=== PATIENT | female | born 1985 | race Caucasian/White ===

== ENCOUNTER 2023-04-29 15:54 | Emergency (ER) | payer BC, SELFPAY ==
[2023-04-29 15:56] VITALS: BP 161/100
[2023-04-29 16:19] LABS: % Basophils 0.5 % (0-2); % Eosinophils 1.3 % (0-6); % Immature Granulocytes 0.3 % (0-0.5); % Lymphocytes 33.9 % (20.5-51.1); % Monocytes 6.3 % (1.7-9.3); % Neutrophils 57.7 % (42.2-75.2); Absolute Eosinophils 0.1 10^3/uL (0-0.7); Absolute Lymphocytes 2.5 10^3/uL (1.2-3.4); Absolute Monocytes 0.5 10^3/uL (0.1-0.6); Absolute Neutrophils 4.3 10^3/uL (1.4-6.5); Hematocrit 37.6 % (37.0-47.0); Hemoglobin 13.1 g/dL (12.0-16.0); Mean Corp Hgb Conc. 34.8 g/dL (33.0-37.0); Mean Corpuscular Hgb 30.5 pg (27.0-31.0); Mean Corpuscular Volume 87.4 fL (81.0-99.0); Mean Platelet Volume 9.9 fL (7.4-10.4); Nucleated Red Blood Cells % 0 %; Platelet Count 340 10^3/uL (130-400); Red Cell Dist. Width 13.2 % (11.5-14.5); White Blood Cell Count 7.4 10^3/uL (4.8-10.8)
[2023-04-29 16:38] LABS: ALT (SGPT) 27 U/L (0-35); AST (SGOT) 18 U/L (14-36); Albumin 4.7 g/dl (3.5-5.0); Alkaline Phosphatase 85 U/L (38-126); Blood Urea Nitrogen 12 mg/dl (7-17); Calcium 9.7 mg/dl (8.4-10.2); Carbon Dioxide 25 mmol/L (22-30); Chloride 101 mmol/L (98-107); Glucose 136 mg/dl (70-99); Sodium 136 mmol/L (135-145); Total Bilirubin 0.4 mg/dl (0.2-1.3); Total Protein 7.3 g/dl (6.3-8.2); eGFR > 60.00
[2023-04-29 16:48] LABS: HCG, Serum Qualitative Screen Negative
--- NOTE | 2023-04-29 17:14 | ED.GENMED ---
History of Present Illness
<Roxy Crouch PA-C - Last Filed: 04/30/23 00:12>
General
Chief Complaint: Vaginal Bleeding
Source: patient
Exam Limitations: none
Time Seen by Provider: 04/29/23 16:43
Nursing documentation reviewed up to this point in time: agreed with
Travel History
Have you had any contact with someone who has COVID-19?: No
Do you have any symptoms of coronavirus? Fever > 100 degrees, chills, cough, shortness of breath, sore throat, loss of taste or smell, muscle aches, or headache?: No
History of Present Illness
History of Present Illness:
The patient is a 37-year-old female with history hypertension presenting for evaluation of persistent vaginal bleeding. Symptoms started on April 11�which she attributed to her menstrual period that was 14 days late. Bleeding continued for a week
without any decrease in intensity. She was seen by her [facility]ER OFFBEARER on April 19�where they performed a pelvic exam without any abnormal findings. They sent her for lab work and ordered an ultrasound to be completed outpatient. She has been unable to
get an appointment for ultrasound until May. Her lab work at that point was unremarkable. Bleeding has persisted since then and last night she started passing large clots. Her PLANER OFFBEARER recommended that she be seen in the emergency department.
Patient states that she is soaking through a pad or super tampon about once every 1-2 hours. She also endorses lower back pain and associated fatigue. She denies any dysuria, headache, chest pain, shortness of breath, fever, chills. She denies
any severe lightheaded or dizzy sensations. No episodes of fainting.
Patient has had 1 vaginal or 5 years ago and 1 miscarriage approximately 2 years ago. She has not been sexually active since this bleeding episode started. She has no history of STDs or abnormal Pap smears.
Patient discontinued her oral contraceptive this past January due to hypertension. She is currently on no other for control. She did take a test at home that was negative
Past History
<Roxy Crouch PA-C - Last Filed: 04/30/23 00:12>
Past History
ED Past Medical History: HTN
ED Past Surgical History: None
Social History
Tobacco: Former smoker
Alcohol: Occasional
Personal:
Living: with family
Employment: Employed
Phy Exam
<Roxy Crouch PA-C - Last Filed: 04/30/23 00:12>
Physical Exam
Physical Exam:
General: In no apparent distress, nontoxic appearing
Vitals: Hypertensive, otherwise vital signs stable
HEENT: Atraumatic, normocephalic; pupils equal round reactive light bilaterally, protecting airway, moist mucous membranes
Neck: appears supple, no JVD
CV: Regular rate and rhythm, no evidence of cyanosis
Resp: No evidence of respiratory distress, lungs clear
Abd: Soft, mildly tender suprapubic without rebound or guarding, non-distended
Pelvic: Blood in vaginal vault without any obvious clots, bimanual exam nontender
Extremities: No deformities, no evidence of cyanosis or edema no tenderness to calf; DP pulses palpable and equal bilaterally
Neuro: alert and oriented x 3; grossly intact
Psych: Normal affect
Skin: Intact, no rashes; no pallor
Course
<Roxy Crouch PA-C - Last Filed: 04/30/23 00:12>
Orders/Labs/Results
Orders:
Orders
04/29/23 16:02
CMP [Comprehensive Metabolic Panel] Urgent
Complete Blood Count/With Diff Urgent
HCG, Serum Qualitative Screen Urgent
Comment: ADD ON
TSH Reflex To Free T4 Urgent
Comment: ADD ON
04/29/23 16:35
Add On- LAB Urgent
Tests Added?: hcg qual
04/29/23 17:34
Add On- LAB Urgent
Tests Added?: TSH w/ reflex to T4
US Pelvis W Transvag Combined Urgent
Reason For Exam: vaginal bleeding w/ clots for 3 weeks
04/29/23 18:06
Urinalysis Reflex To Culture Urgent
Date Specimen was Collected: 04/29/23
Time Specimen was Collected: 17:38
Urine Microscopic Reflex Cult Urgent
04/29/23 20:15
Tranexamic Acid [Cyklokapron] 1,300 mg PO NOW STA
Abnormal Lab Results
04/29/23 04/29/23
16:02 18:06
Glucose 136 H mg/dl
(70-99)
Ur Occult Blood Reflex 4+ A
(Negative)
Urine RBC 7-10 A /HPF
(0-2)
04/29/23 16:02
04/29/23 16:02
Vital Signs
Initial and Last Documented VS:
Initial Vital Signs
Temp Pulse Resp BP Pulse Ox
98.2 F 100 18 161/100 100
04/29/23 15:56 04/29/23 15:56 04/29/23 15:56 04/29/23 15:56 04/29/23 15:56
Last Documented Vital Signs
Temp Pulse Resp BP Pulse Ox
98.2 F 67 16 147/96 100
04/29/23 15:56 04/29/23 19:57 04/29/23 19:57 04/29/23 19:57 04/29/23 19:57
<Aleksey Shelley MD - Last Filed: 04/29/23 20:20>
Orders/Labs/Results
Orders:
Orders
04/29/23 16:02
CMP [Comprehensive Metabolic Panel] Urgent
Complete Blood Count/With Diff Urgent
HCG, Serum Qualitative Screen Urgent
Comment: ADD ON
TSH Reflex To Free T4 Urgent
Comment: ADD ON
04/29/23 16:35
Add On- LAB Urgent
Tests Added?: hcg qual
04/29/23 17:34
Add On- LAB Urgent
Tests Added?: TSH w/ reflex to T4
US Pelvis W Transvag Combined Urgent
Reason For Exam: vaginal bleeding w/ clots for 3 weeks
04/29/23 18:06
Urinalysis Reflex To Culture Urgent
Date Specimen was Collected: 04/29/23
Time Specimen was Collected: 17:38
Urine Microscopic Reflex Cult Urgent
04/29/23 20:15
Tranexamic Acid [Cyklokapron] 1,300 mg PO NOW STA
Abnormal Lab Results
04/29/23 04/29/23
16:02 18:06
Glucose 136 H mg/dl
(70-99)
Ur Occult Blood Reflex 4+ A
(Negative)
Urine RBC 7-10 A /HPF
(0-2)
04/29/23 16:02
04/29/23 16:02
Vital Signs
Initial and Last Documented VS:
Initial Vital Signs
Temp Pulse Resp BP Pulse Ox
98.2 F 100 18 161/100 100
04/29/23 15:56 04/29/23 15:56 04/29/23 15:56 04/29/23 15:56 04/29/23 15:56
Last Documented Vital Signs
Temp Pulse Resp BP Pulse Ox
98.2 F 67 16 147/96 100
04/29/23 15:56 04/29/23 19:57 04/29/23 19:57 04/29/23 19:57 04/29/23 19:57
<Roxy Crouch PA-C - Last Filed: 04/30/23 00:12>
MDM/Problems Addressed
Differential Diagnosis Includes:
Menstrual period, miscarriage, uterine fibroids, thyroid dysfunction, endometriosis, malignancy
MDM/Problems Addressed:
Patient is a 37-year-old female presenting with persistent vaginal bleeding for 3 weeks. Some associated low back pain and fatigue. No fainting. Was seen in [facility] 2 weeks ago with no abnormal findings on exam and normal blood work. Sent in the
emergency department due to persistent bleeding and passing large clots last night. Patient is hemodynamically stable on arrival. She is in no apparent distress. Physical exam as documented below. She is very mildly tender in the suprapubic
region. Pelvic exam shows blood in vaginal vault without any obvious clots, nontender bimanual exam. Will check basic labs, TSH, . Will check ultrasound while in emergency department.
CBC and CMP are unremarkable. Hemoglobin is stable at 13.1-increased from 12.4 from blood work drawn last week. TSH within normal range. Urine shows no signs of infection, only blood. Ultrasound shows no abnormal endometrial thickening or
masses. There is a small hemorrhagic cyst on left ovary which I do not suspect to be the cause of patient's symptoms.
Discussed with PLANER OFFBEARER. Will plan for discharge with return precautions. Will start patient on tranexamic acid 3 times daily for up to 5 days until bleeding stops. Patient will follow-up with PLANER OFFBEARER in office this week. Patient is hemodynamically
stable upon discharge.
Chronic conditions affecting care:
Hypertension
Acute Exacerbation and/or Progression of Chronic Illness:
Acutely hypertensive
<Roxy Crouch PA-C - Last Filed: 04/30/23 00:12>
*Radiology
Radiology exam reviewed: radiology read reviewed
*Pulse Oximetry
Patient hypoxic: no
*EKG
Interpreted by ED Provider?: NA
*Binding Cutter Synthetic Cloth Interpretation
Rate: Binding Cutter Synthetic Cloth- N/A
*Critical Care Note
Total Time (30-74mins, 75-104mins- exclusive of procedures): Not Applicable
Data Reviewed
Review of Other/Old Records Reveals: Labs
Source: patient
Prescriptions/Medications Considered But Not Given:
OCP�given patient was recently stopped due to hypertension will treat with Tranxene Tatyana acid for now
<Roxy Crouch PA-C - Last Filed: 04/30/23 00:12>
Patient Management
Discussion with other providers: Multifocal Lens Assembler ([facility]ER OFFBEARER)
ED Attending Note
<Roxy Crouch PA-C - Last Filed: 04/30/23 00:12>
-
Portions of this chart may have been created with voice recognition software.� Occasional wrong word or��sound alike� substitutions may have occurred due to the inherent limitations of voice recognition software.
<Aleksey Shelley MD - Last Filed: 04/29/23 20:20>
ED Attending Note
Patient seen and examined by attending physician: Yes
ED Attending Note:
Patient presents to ED secondary to persistent vaginal bleeding with passage of clots over the past 17 days. Patient reports mild intermittent lightheaded sensation. Denies chest pain or shortness of breath. Denies abdominal pain. Denies nausea
or vomiting. Denies recent change in medications or diet. Denies previous history of similar symptoms. Patient has been evaluated by her [facility] OFF[facility]ARER physician recently and has an outpatient pelvic ultrasound ordered.
Physical Exam
General: no apparent distress, not acutely ill. afebrile
Head: nc/at. eomi
Neck: supple. no meningeal signs.
Abdomen: normal bowel sounds. not tender.
Neuro: alert and oriented. no focal neurological deficits
Skin: no rash
Psychiatric: well kept. interactive and cooperative
Extremities: no edema. no calf tenderness.
Pelvic exam performed by PREMA Davenport - minimal bleeding noted.
H&H stable. Pelvic ultrasound report reviewed and discussed with patient. Will reach out to patient's primary [employer]EL[employer] WORKER physician for further recommendation, including outpatient follow-up, as well as potential treatment.
Discussed with oncall help desk support physician, . Recommends treatment via [facility]. Office will reach out to patient for outpatient f/u. Pt otherwise is hemodynamically stable and nontoxic appearing at time of discharge, to the care of her family.
Discharge Plan
Departure
Patient Disposition: Home (Routine Discharge)
Date of Disposition: 04/29/23
Time of Disposition: 20:15
Patient with high blood pressure during this ER visit?: Yes
Condition: Good
Covid-19: Not Applicable
Discharge Problem:
Vaginal bleeding
Instructions: Heavy Periods (DC), BLOOD PRESSURE
Prescriptions:
New
tranexamic acid 650 mg tablet
1,300 mg PO TID 5 Days Qty: 30 0RF
Rx Instructions:
up to 5 days or until bleeding stops
No Action
Calcium
1 tab PO DAILY
Vitamins
1 tab PO DAILY
omeprazole 40 MG capsule,delayed release(DR/EC)
40 mg PO PRN PRN (Reason: heartburn)
ibuprofen 600 MG tablet
600 mg PO Q4HPRN PRN (Reason: moderate pain/cramps) Qty: 30 0RF
Referrals:
Mercy Olsen DO [Active] - Next open appointment
Nelda Carr PA [Family Provider] -
Activity Restrictions/Additional Instructions:
- Return to the emergency department with any severe bleeding, dizziness/lightheadedness, fainting, severe back pain, severe abdominal pain, worsening in current symptoms, intractable nausea/vomiting, or any other concerns
-As discussed�a prescription for tranexamic acid to your pharmacy. You can take 2 tabs (1300 mg) 3 times a day for up to 5 days or until bleeding stops
-It is important to stay well-hydrated. You can take Tylenol as needed for discomfort
-You should follow-up with your PLANER OFFBEARER in the next few days for further evaluation/management
Interventions
Interventions:
*Risk Screen - Suicide Last Done: 04/29/23 15:56
*General Assessment Last Done: 04/29/23 15:56
*Neglect/Abuse Screening Last Done: 04/29/23 15:56
ED- Fall Risk Assessment Last Done: 04/29/23 16:58
*ED COVID-19 Vaccine History Last Done: 04/29/23 15:56
*Nursing Disposition Last Done: 04/29/23 20:27
ED-Female Genitourinary Assessment Last Done: 04/29/23 16:58
Discharge Date and Time
Discharge Date/Time: 04/29/23 20:28
[2023-04-29 18:26] LABS: Urine Albumin Negative (Neg - Trace); Urine Bilirubin Negative (Negative); Urine Character Clear (Clear); Urine Color Straw; Urine Glucose Negative (Negative); Urine Ketone Negative (Negative); Urine Leukocyte Negative (Negative); Urine Nitrite Negative (Negative); Urine Occult Blood 4+ (Negative); Urine Specific Gravity 1.005 (<1.030); Urine Urobilinogen Negative (Neg - 1+)
[2023-04-29 18:34] LABS: Urine Squamous Cell 0-2 /LPF (Few); Urine White Cell 0-2 /HPF (0-5)
[2023-04-29 19:38] LABS: TSH Reflex To Free T4 1.21 uIU/ml (0.47-4.68)
[2023-04-29 19:57] VITALS: BP 147/96
[2023-04-29] MEDS: CYKLOKAPRON 1300 MG PO (20:26)
== END 2023-04-29 20:28 | disposition home or self-care (01) ==
LOC: EMR 15:54
PROVIDERS: Physician Assistant; EMERGENCY PHYSICIAN Emergency Medicine; FAMILY PHYSICIAN Physician Assistant Medical
DX: N93.9 Abnormal uterine and vaginal bleeding, unspecified (principal); I10 Essential (primary) hypertension; Z87.891 Personal history of nicotine dependence
CPT/HCPCS: 99284; 76830; 76856; 80053; 81003; 81015; 84443; 84703; 85025

== ENCOUNTER → 2024-01-10 07:50 | Outpatient (REF) | payer BC, SELFPAY | LOC: MRI 3T 07:50 | PROVIDERS: ATTENDING PHYSICIAN Orthopaedic Surgery; FAMILY PHYSICIAN Physician Assistant Medical | DX: M25.561 Pain in right knee (principal) | CPT/HCPCS: 73721 ==

== ENCOUNTER → 2024-03-25 06:41 | Outpatient (REF) | payer BC, SELFPAY | LOC: HWWDC 06:41 | PROVIDERS: ATTENDING PHYSICIAN Physician Assistant Medical | DX: Z12.31 Encounter for screening mammogram for malignant neoplasm of breast (principal) | CPT/HCPCS: 77063; 77067 ==

== ENCOUNTER → 2024-08-17 10:20 | Outpatient (REF) | payer BC, SELFPAY | LOC: RAD 10:20 | PROVIDERS: ATTENDING PHYSICIAN Internal Medicine Rheumatology; FAMILY PHYSICIAN Physician Assistant Medical | DX: M11.261 Other chondrocalcinosis, right knee (principal) | CPT/HCPCS: 73564 ==

== ENCOUNTER → 2024-09-01 09:25 | Outpatient (REF) | payer BC, SELFPAY | LOC: HWRAD 09:25 | PROVIDERS: ATTENDING PHYSICIAN Physician Assistant Medical | DX: E01.0 Iodine-deficiency related diffuse (endemic) goiter (principal) | CPT/HCPCS: 76536 ==

== ENCOUNTER → 2025-02-08 08:37 | Outpatient (REF) | payer BC, SELFPAY | LOC: HWRAD 08:37 | PROVIDERS: ATTENDING PHYSICIAN Physician Assistant Medical | DX: M54.50 Low back pain, unspecified (principal); R31.29 Other microscopic hematuria | CPT/HCPCS: 74176 ==